=== PATIENT | female | born 1985 | race African-American/Black ===

== ENCOUNTER 2017-03-16 09:02 | Emergency (ER) | payer OTHER ==
[~2017-03-16] VITALS: Ht 170.2 cm; Wt 90.3 kg
[~2017-03-16 09:02] MED LIST: DEBROX15 M1 RIGHT EAR; TYLENOL650 MG/20. ORAL; ZOFRAN ODT4 MG ORAL
[2017-03-16 09:28] VITALS: BP 135/83
[2017-03-16] MEDS ORDERED: NKM (09:34)
[2017-03-16] MEDS ORDERED: Fluconazole 100mg tab ORAL ONE (10:00)
[2017-03-16] MEDS ORDERED: IBUPROFEN600 MG ORAL (10:10)
[2017-03-16 10:29] VITALS: BP 132/81
--- NOTE | 2017-03-16 11:02 | Diagnostic Imaging Report ---
Indication: PAIN Technique: 3 views right hand Comparison: none Findings: No acute fractures. No dislocations. There is minimal joint space narrowing of the second third and fourth proximal interphalangeal joints. Impression: No acute process Minimal degenerative changes
--- NOTE | 2017-03-19 20:01 | Emergency Room Report ---
History of Present Illness General Chief Complaint: Upper Extremity Injury Source: Patient Present Illness HPI Patient is a 32-year-old female who presented after a fall with a complaint of thumb pain. The patient reported having increased pain with movement. The fall occurred several days prior to arrival. This reported having sharp pain to her right thumb. She denied any distal numbness or tingling. Pain was located at the MCP joint. Pain did not improvement so patient presented for further evaluation. The patient additionally reports having some cottage cheese vaginal discharge. She states this has been present for several days. She denies being . She denies prior history of diabetes. 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 Allergies: Coded Allergies: No Known Allergies (Unverified , 12/08/14) Patient History Past Medical History: see triage record Last Menstrual Period: 02/25/17 Now: No Reviewed Nursing Documentation: PMH: Agreed, PSxH: Agreed Nursing Documentation-PMH Past Medical History: No Stated History Review of Systems All Other Systems: negative except mentioned in HPI Physical Exam Vital Signs Date Time Temp Pulse Resp B/P (MAP) Pulse Ox O2 Delivery O2 Flow Rate FiO2 03/16/17 09:28 98.4 81 19 135/83 98 Room Air General Appearance: well appearing, no apparent distress, alert, GCS 15 Head: normocephalic, atraumatic ENT: hearing grossly normal, normal voice Neck: full range of motion, supple Respiratory: no respiratory distress, speaking full sentences Cardiovascular #1: normal inspection, regular rate, rhythm, no edema Musculoskeletal: no calf tenderness, other - swelling and laxity to right thumb at MCP joint. Neurologic: normal gait Psychiatric: mood/affect normal Skin: no rash Medical Decision Making Diagnostic Impression: Primary Impression: Sprain of right thumb ER Course Patient presented for thumb pain after fall. Differential diagnoses included sprain, fracture, dislocation among others. X-ray imaging of the right hand 3 views interpreted by radiology showed no bony alignment without fracture. Patient given Diflucan for what appears to be a yeast infection. The patient is advised to follow up with primary care doctor in 1-2 days. Patient is advised to return if any worsening condition or if any changes in status that are concerning. Patient was placed in a thumb spica splint. She is advised that she may need further treatment. She is placed on light duty Labs Test 03/16/17 09:41 Urine HCG, Qualitative Negative Last Vital Signs Date Time Temp Pulse Resp B/P (MAP) Pulse Ox O2 Delivery O2 Flow Rate FiO2 03/16/17 10:29 98.4 74 19 132/81 98 Room Air Status: improved Disposition: HOME, SELF-CARE Condition: Stable Scripts Ibuprofen* (MOTRIN*) 600 Mg Tablet 600 MG ORAL Q8H Y for For Pain, #30 TAB 0 Refills Prov: Wilder Esposito 03/16/17 Referrals: [facility],REFERRING (PCP) Departure Forms: Return to Work Return to Work in (Days): 1 Other Restrictions: no use of right hand Patient Instructions: Thumb Sprain Wilder Esposito Mar 19, 2017 20:01
== END 2017-03-16 11:00 | disposition home or self-care (01) ==
LOC: EMR 10:58
DX: S63.601A Unspecified sprain of right thumb, initial encounter (principal); W19.XXXA Unspecified fall, initial encounter; Y93.9 Activity, unspecified; Y92.9 Unspecified place or not applicable; N89.8 Other specified noninflammatory disorders of vagina; E11.9 Type 2 diabetes mellitus without complications
CPT/HCPCS: 81025; 99283

== ENCOUNTER 2017-03-20 08:57 | Emergency (ER) | payer OTHER ==
[~2017-03-20] VITALS: Ht 170.2 cm; Wt 90.3 kg
[~2017-03-20 08:57] MED LIST changes: +IBUPROFEN600 MG ORAL; +NKM
[2017-03-20] MEDS ORDERED: Tetanus/Diptheria/Pertussis Vaccine 0.5ml Syr IM ONE (09:15)
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
[2017-03-20 10:18] VITALS: BP 126/77
[2017-03-20] MEDS ORDERED: AUGMENTIN 875-1 EAC1 ORAL (10:29)
[2017-03-20] MEDS ORDERED: FLUCONAZOLE100 MG ORAL (10:29)
[2017-03-20 10:34] VITALS: BP 126/77
== END 2017-03-20 10:35 | disposition home or self-care (01) ==
LOC: EMR 09:33
DX: S61.250A Open bite of right index finger without damage to nail, initial encounter (principal); Y04.1XXA Assault by human bite, initial encounter; Y93.F9 Activity, other caregiving; Y92.89 Other specified places as the place of occurrence of the external cause; Y99.0 Civilian activity done for income or pay; Z23 Encounter for immunization; J45.909 Unspecified asthma, uncomplicated; Z88.6 Allergy status to analgesic agent
CPT/HCPCS: 90471; 90715; 99283

== ENCOUNTER 2018-05-14 07:02 | Emergency (ER) | payer OTHER ==
[~2018-05-14] VITALS: Ht 170.2 cm; Wt 90.7 kg
[~2018-05-14 07:02] MED LIST changes: +AUGMENTIN 875-1 EAC1 ORAL; +FLUCONAZOLE100 MG ORAL
--- NOTE | 2018-05-14 07:41 | Emergency Room Report ---
History of Present Illness General Chief Complaint: Sore Throat Source: Patient Present Illness HPI Patient presents with sore throat and bilateral ear pain. It started yesterday. She's having difficulty swallowing. She's been able keep down liquids. She feels chills and also cold. She's had prior otitis media on R. No cough, chest pain, rashes, NVD, dysuria. She's not at this time. H/O asthma, not wheezing. No diabetes. 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 [employer] Last Menstrual Period: april Now: No Reviewed Nursing Documentation: PMH: Agreed; PSxH: Agreed Nursing Documentation-PMH Hx Asthma: Yes Review of Systems All Other Systems: negative except mentioned in HPI Physical Exam Vital Signs Date Time Temp Pulse Resp B/P (MAP) Pulse Ox O2 Delivery O2 Flow Rate FiO2 05/14/18 07:21 98.2 79 16 121/80 95 Room Air Sp02 EP Interpretation: reviewed, normal - slightly low as interpreted by me General Appearance: well appearing, no apparent distress Head: normocephalic, atraumatic Eyes: bilateral eye normal inspection, bilateral eye PERRL ENT: normal voice, moist mucus membranes, tonsillar swelling, pharyngeal erythema, other - TMs with erythema, more buldge R Neck: full range of motion, supple Respiratory: no respiratory distress, speaking full sentences Cardiovascular #1: regular rate, rhythm, no edema Cardiovascular #2: 2+ radial (L) Gastrointestinal: normal inspection, normal bowel sounds, non tender Genitourinary: no CVA tenderness Musculoskeletal: digits/nails normal, gait/station normal, normal range of motion Neurologic: alert, oriented x3, normal gait, grossly normal Psychiatric: mood/affect normal Skin: no rash Medical Decision Making Diagnostic Impression: Primary Impression: Pharyngitis Qualified Codes: J02.9 - Acute pharyngitis, unspecified Additional Impression: Otitis media Qualified Codes: H66.006 - Acute suppurative otitis media without spontaneous rupture of ear drum, recurrent, bilateral ER Course Patient presents with sore throat and ear pain. Exam is consistent with otitis media. Patient needs antibiotics, viscous lidocaine and Tylenol. The patient is not toxic and is not tachycardic. Patient is stable for outpatient observation and treatment. Last Vital Signs Date Time Temp Pulse Resp B/P (MAP) Pulse Ox O2 Delivery O2 Flow Rate FiO2 05/14/18 08:01 98.2 85 16 124/81 99 Room Air Status: improved Disposition: HOME, SELF-CARE Condition: Improved Scripts Ibuprofen* (MOTRIN*) 600 Mg Tablet 600 MG ORAL Q6H PRN for For Pain, #16 TAB Prov: Sanchez Rivas MD 05/14/18 Chlorpheniramine Maleate (CHLOR-TRIMETON) 4 Mg Tablet 4 MG PO Q6HR PRN for ear pain and congestion, #10 TAB Prov: Sanchez Rivas MD 05/14/18 Amoxicillin/Potassium Clav 500-125 Tablet* (AUGMENTIN 500-125 TABLET*) 1 Each Tablet 1 TAB ORAL THREE TIMES A DAY, #20 TAB Prov: Sanchez Rivas MD 05/14/18 Sanchez Rivas MD May 14, 2018 07:41
[2018-05-14] MEDS ORDERED: IBUPROFEN600 MG ORAL (07:43)
[2018-05-14] MEDS ORDERED: AUGMENTIN 500-1 EACH ORAL (07:43)
[2018-05-14] MEDS ORDERED: CHLOR-TRIMETON4 MG PO (07:43)
[2018-05-14] MEDS ORDERED: Acetaminophen 500mg (ES) tab ORAL ONE (07:45)
[2018-05-14] MEDS ORDERED: Lidocaine 2% Visc 15ml soln ORAL ONE (07:45)
[2018-05-14 07:55] VITALS: BP 124/81
[2018-05-14 08:01] VITALS: BP 124/81
== END 2018-05-14 09:17 | disposition home or self-care (01) ==
LOC: EMR 07:50
DX: J02.9 Acute pharyngitis, unspecified (principal); H66.93 Otitis media, unspecified, bilateral; J45.909 Unspecified asthma, uncomplicated; Z88.6 Allergy status to analgesic agent
CPT/HCPCS: 99283

== ENCOUNTER 2018-09-27 08:10 | Emergency (ER) | payer OTHER ==
[~2018-09-27] VITALS: Ht 170.2 cm; Wt 93.4 kg
[~2018-09-27 08:10] MED LIST changes: +AUGMENTIN 500-1 EACH ORAL; +CHLOR-TRIMETON4 MG PO
[2018-09-27] MEDS ORDERED: AMOXICILLIN500 MG ORAL (08:28)
[2018-09-27] MEDS ORDERED: IBUPROFEN600 MG ORAL (08:28)
[2018-09-27 08:32] VITALS: BP 136/83
[2018-09-27 08:40] VITALS: BP 136/83
--- NOTE | 2018-09-27 08:40 | NUR ---
ER DISCHARGE NOTE: Patient is cleared to be discharged per ERMD, pt is aox4, on room air, with stable vital signs. pt was given dc and prescription instructions, pt was able to verbalize understanding, pt is able to ambulate with steady gait. pt took all belongings.
--- NOTE | 2018-09-27 09:01 | Emergency Room Report ---
History of Present Illness General Chief Complaint: Flu Like Symptoms Source: Patient Present Illness HPI Patient presents emergency department today complaining of several days of cough congestion subjective fevers and chills and right ear ache. Patient denies any shortness of breath. Denies any leg pain leg swelling. Patient's daughter is also sick with similar symptoms. No other complaints are noted. Symptoms noted to be moderate. Patient states that she did not receive a flu shot this year. Patient is tolerating by mouth taking plenty of fluids. Denies any diarrhea.No other modifying factors. No other associated signs and symptoms. No other complaints were noted. Allergies: Coded Allergies: ASPIRIN (Verified Allergy, Severe, 09/27/18) seizures Uncoded Allergies: CITRUS (Allergy, Unknown, 05/14/18) Patient History Past Medical History: asthma Past Surgical History: none Pertinent Family History: none Social History: Denies: smoking, alcohol use, drug use Last Menstrual Period: aug 30 Now: No Reviewed Nursing Documentation: PMH: Agreed; PSxH: Agreed Nursing Documentation-PMH Past Medical History: No History, Except For Hx Asthma: Yes Review of Systems All Other Systems: negative except mentioned in HPI Physical Exam Vital Signs Date Time Temp Pulse Resp B/P (MAP) Pulse Ox O2 Delivery O2 Flow Rate FiO2 09/27/18 08:12 98.2 76 18 136/83 98 Room Air Sp02 EP Interpretation: reviewed, normal General Appearance: normal inspection, well appearing, no apparent distress, alert Head: atraumatic Eyes: bilateral eye normal inspection ENT: normal ENT inspection, hearing grossly normal, normal voice Neck: normal inspection, full range of motion, supple, no bony tend Respiratory: normal inspection, lungs clear, normal breath sounds, no respiratory distress, no retraction, no wheezing Cardiovascular #1: regular rate, rhythm, no edema Gastrointestinal: normal inspection, normal bowel sounds, non tender, soft, no guarding, no hernia Genitourinary: no CVA tenderness Musculoskeletal: normal inspection, back normal, normal range of motion Neurologic: normal inspection, alert, responsive, speech normal Psychiatric: normal inspection, judgement/insight normal, mood/affect normal Skin: normal inspection, normal color, no rash Medical Decision Making Diagnostic Impression: Primary Impression: Influenza-like symptoms Additional Impression: Earache on right ER Course Patient presents emergency department today with influenza-like symptoms. Difficult considerations include viral syndrome, otitis media, pneumonia just name a few. Patient's exam certainly benign I feel the patient symptoms are consistent with influenza. Given however patient has had symptoms for several days I do not feel that Tamiflu is indicated this time. In addition patient complains of right earache. Tympanic membrane appears to be clear although there could be a little fluid there. Given patient's presentation we'll provide prescription for amoxicillin. Recommend hold off on taking antibiotics until her symptoms becomes worse.Patient is advised to follow up with primary doctor in 2-3 days and return the emergency room for any worsening symptoms and as needed. Last Vital Signs Date Time Temp Pulse Resp B/P (MAP) Pulse Ox O2 Delivery O2 Flow Rate FiO2 09/27/18 08:40 98.2 78 18 136/83 98 Room Air Status: improved Disposition: HOME, SELF-CARE Condition: Stable Scripts Ibuprofen* (MOTRIN*) 600 Mg Tablet 600 MG ORAL Q8H PRN for For Pain, #20 TAB 0 Refills Prov: Aaron Nobles MD 09/27/18 Amoxicillin* (AMOXIL*) 500 Mg Capsule 500 MG ORAL THREE TIMES A DAY, #30 CAP Prov: Aaron Nobles MD 09/27/18 Departure Forms: Return to Work Return to Work Date: Oct 02, 2018 Patient Instructions: Influenza, Adult, [id number] Aaron Nobles MD Sep 27, 2018 09:01
== END 2018-09-27 08:40 | disposition home or self-care (01) ==
LOC: EMR 08:30
DX: J11.1 Influenza due to unidentified influenza virus with other respiratory manifestations (principal); H92.01 Otalgia, right ear; J45.909 Unspecified asthma, uncomplicated
CPT/HCPCS: 99282

== ENCOUNTER 2019-03-27 19:10 | Emergency (ER) | payer OTHER ==
[~2019-03-27] VITALS: Ht 167.6 cm; Wt 93.0 kg
[~2019-03-27 19:10] MED LIST changes: +AMOXICILLIN500 MG ORAL
[2019-03-27] MEDS ORDERED: Acetaminophen 500mg (ES) tab ORAL ONE (19:30)
--- NOTE | 2019-03-27 19:45 | Emergency Room Report ---
History of Present Illness General Chief Complaint: Complications Source: Patient Present Illness HPI 34-year-old female G4, , presents with abdominal cramps 3 days prior to arrival, with some bleeding, no obvious blood clots no darren blood per patient she states her last menstrual period was 7 weeks ago, she had a positive test she endorses some nausea vomiting, no aggravating relieving factors associated with cramps, no diarrhea, severity is mild, intermittent lasting minutes patient does not remember her blood type patient presents for evaluation Allergies: Coded Allergies: ASPIRIN (Verified Allergy, Severe, 03/27/19) seizures Uncoded Allergies: CITRUS (Allergy, Unknown, 05/14/18) Patient History Past Medical History: see triage record Last Menstrual Period: 02-10-19 Now: Yes - 2 : 4 Para: 1 Reviewed Nursing Documentation: PMH: Agreed; PSxH: Agreed Nursing Documentation-PMH Hx Asthma: Yes Review of Systems All Other Systems: negative except mentioned in HPI Physical Exam Vital Signs Date Time Temp Pulse Resp B/P (MAP) Pulse Ox O2 Delivery O2 Flow Rate FiO2 03/27/19 19:12 98.2 85 18 149/70 (96) 97 Room Air Sp02 EP Interpretation: reviewed, normal General Appearance: well appearing, no apparent distress, alert Head: normocephalic, atraumatic Eyes: bilateral eye PERRL, bilateral eye EOMI ENT: uvula midline, moist mucus membranes Neck: supple, thyroid normal, supple/symm/no masses Respiratory: lungs clear, no respiratory distress, no retraction, no accessory muscle use Cardiovascular #1: normal peripheral pulses, regular rate, rhythm, no edema, no gallop, no murmur Gastrointestinal: non tender, soft, no guarding, no rebound Musculoskeletal: normal inspection Neurologic: alert, oriented x3 Psychiatric: mood/affect normal Skin: no rash, warm/dry Medical Decision Making Diagnostic Impression: Primary Impression: Complication of Qualified Codes: O26.91 - related conditions, unspecified, first trimester Additional Impressions: Threatened UTI (urinary tract infection) Qualified Codes: N30.00 - Acute cystitis without hematuria ER Course Patient with abdominal cramping patient is currently differential diagnosis is threatened , , diverticulitis, appendicitis, abdomen soft nontender, ultrasound shows yolk sac, 5 weeks 2 days , no heartbeat, ovaries within normal limits, Patient is O+, H&H is stable, patient does have a UTI will provide patient with prescriptions disposition home with return precautions counseled patient to follow-up with OB Laboratory Tests Test 03/27/19 19:12 03/27/19 19:30 White Blood Count 10.5 K/UL (4.8-10.8) Red Blood Count 4.36 M/UL (4.20-5.40) Hemoglobin 13.4 G/DL (12.0-16.0) Hematocrit 39.8 % (37.0-47.0) Mean Corpuscular Volume 91 FL (80-99) Mean Corpuscular Hemoglobin 30.7 PG (27.0-31.0) Mean Corpuscular Hemoglobin Concent 33.7 G/DL (32.0-36.0) Red Cell Distribution Width 10.9 % (11.6-14.8) L Platelet Count 233 K/UL (150-450) Mean Platelet Volume 6.0 FL (6.5-10.1) L Neutrophils (%) (Auto) 48.8 % (45.0-75.0) Lymphocytes (%) (Auto) 42.1 % (20.0-45.0) Monocytes (%) (Auto) 6.2 % (1.0-10.0) Eosinophils (%) (Auto) 1.6 % (0.0-3.0) Basophils (%) (Auto) 1.3 % (0.0-2.0) Sodium Level 137 MMOL/L (136-145) Potassium Level 3.5 MMOL/L (3.5-5.1) Chloride Level 103 MMOL/L (98-107) Carbon Dioxide Level 24 MMOL/L (21-32) Anion Gap 10 mmol/L (5-15) Blood Urea Nitrogen 12 mg/dL (7-18) Creatinine 0.9 MG/DL (0.55-1.30) Estimate Glomerular Filtration Rate > 60 mL/min (>60) Glucose Level 93 MG/DL (74-106) Calcium Level 8.6 MG/DL (8.5-10.1) Total Bilirubin Pending Aspartate Amino Transferase (AST) 15 U/L (15-37) Alanine Aminotransferase (ALT) 20 U/L (12-78) Alkaline Phosphatase 84 U/L (46-116) Total Protein 7.7 G/DL (6.4-8.2) Albumin 4.0 G/DL (3.4-5.0) Globulin 3.7 g/dL Albumin/Globulin Ratio 1.1 (1.0-2.7) Lipase 209 U/L (73-393) Human Chorionic Gonadotropin, Quant 15127 mIU/mL (1-6) H Urine Color Pale yellow Urine Appearance Cloudy Urine pH 6 (4.5-8.0) Urine Specific Bloomer 1.020 (1.005-1.035) Urine Protein 1+ (NEGATIVE) H Urine Glucose (UA) Negative (NEGATIVE) Urine Ketones Negative (NEGATIVE) Urine Blood 5+ (NEGATIVE) H Urine Nitrite Negative (NEGATIVE) Urine Bilirubin Negative (NEGATIVE) Urine Urobilinogen Normal MG/DL (0.0-1.0) Urine Leukocyte Esterase 1+ (NEGATIVE) H Urine RBC 5-10 /HPF (0 - 2) H Urine WBC 0-2 /HPF (0 - 2) Urine Squamous Epithelial Cells Many /LPF (NONE/OCC) H Urine Bacteria Moderate /HPF (NONE) H CT/MRI/US Diagnostic Results CT/MRI/US Diagnostic Results : Impression ultrasound shows yolk sac, 5 weeks 2 days, no heartbeat, ovaries within normal limits, Last Vital Signs Date Time Temp Pulse Resp B/P (MAP) Pulse Ox O2 Delivery O2 Flow Rate FiO2 03/27/19 19:12 98.2 85 18 149/70 (96) 97 Room Air Disposition: HOME, SELF-CARE Condition: Stable Scripts Cephalexin* (CEPHALEXIN*) 500 Mg Tablet 500 MG ORAL EVERY 6 HOURS, #20 CAP Prov: Donald Yi MD 03/27/19 Referrals: [facility],REFERRING (PCP) [facility] Belinda Ortiz. [facility] Patient Instructions: Pelvic Rest, Threatened Miscarriage, [id number], Urinary Tract Infection Additional Instructions: The patient was provided with discharge instructions, notified to follow-up with a primary care doctor and or specialist in the next 24-48 hours, and to return to the ED if they have worsening of their symptoms. Please note that this report is being documented using [employer] technology. This can lead to erroneous entry secondary to incorrect interpretation by the dictating instrument. Donald Yi MD Mar 27, 2019 19:45
[2019-03-27 19:48] LABS: BASOPHILS % (AUTO) 1.3 % (0.0-2.0); EOSINOPHILS % (AUTO) 1.6 % (0.0-3.0); HEMATOCRIT 39.8 % (37.0-47.0); HEMOGLOBIN 13.4 G/DL (12.0-16.0); LYMPHOCYTES % (AUTO) 42.1 % (20.0-45.0); MEAN CORPUSCULAR VOLUME 91 FL (80-99); MONOCYTES % (AUTO) 6.2 % (1.0-10.0); NEUTROPHILS % (AUTO) 48.8 % (45.0-75.0); PLATELET COUNT 233 K/UL (150-450); RED BLOOD COUNT 4.36 M/UL (4.20-5.40); RED CELL DISTRIBUTION WIDTH 10.9 % (11.6-14.8); WHITE BLOOD COUNT 10.5 K/UL (4.8-10.8)
[2019-03-27 19:52] LABS: APPEARANCE,URINE CLOUDY; BILIRUBIN, URINE NEGATIVE (NEGATIVE); COLOR,URINE PALE YELLOW; GLUCOSE, URINE (UA) NEGATIVE (NEGATIVE); KETONES,URINE NEGATIVE (NEGATIVE); LEUKOCYTE ESTERASE ,URINE 1+ (NEGATIVE); NITRITE,URINE NEGATIVE (NEGATIVE); PH,URINE 6 (4.5-8.0); PROTEIN,URINE 1+ (NEGATIVE); UROBILINOGEN,URINE NORMAL MG/DL (0.0-1.0)
[2019-03-27 20:15] LABS: ANION GAP 10 mmol/L (5-15); BLOOD UREA NITROGEN 12 mg/dL (7-18); CALCIUM 8.6 MG/DL (8.5-10.1); CARBON DIOXIDE 24 MMOL/L (21-32); CHLORIDE 103 MMOL/L (98-107); CREATININE 0.9 MG/DL (0.55-1.30); POTASSIUM 3.5 MMOL/L (3.5-5.1); SODIUM 137 MMOL/L (136-145)
[2019-03-27 20:19] LABS: ALANINE AMINOTRANSFERASE 20 U/L (12-78); ALBUMIN/GLOBULIN RATIO 1.1 (1.0-2.7); ALKALINE PHOSPHATASE 84 U/L (46-116); ASPARTATE AMINO TRANSFERASE 15 U/L (15-37)
[2019-03-27] MEDS ORDERED: CEPHALEXIN500 M1 ORAL (20:53)
[2019-03-27 21:00] VITALS: BP 130/79
[2019-03-27 21:41] LABS: BILIRUBIN,TOTAL 0.2 MG/DL (0.2-1.0)
--- NOTE | 2019-03-28 09:44 | Diagnostic Imaging Report ---
Indication: Pain and spotting during Technique: Transabdominal and endovaginal pelvic ultrasound was performed. Findings: An intrauterine gestational sac is identified. A small yolk sac is identified. No pole is identified. 2 subcentimeter hypoechoic lesions noted within the anterior myometrium which may represent small fibroids. Some nabothian cysts are noted within the cervix. Right ovary is normal in appearance. No adnexal mass noted on the right. Color and Doppler flow is noted on the right. There is a simple appearing cyst the left ovary which measures approximately 2.5 cm. Color and Doppler flow is also visualized in the left ovary. No free pelvic fluid is demonstrated. IMPRESSION: * Intrauterine gestational sac with approximate age by ultrasound of 5 weeks 2 days. Yolk sac is identified however pole is not seen at this time. Viability is indeterminate. Differential considerations include early versus failed early . Number and correlation with trended beta-HCG and short-term interval follow-up ultrasound. Obstetric follow-up recommended. * 2.5 cm simple appearing cyst in the left ovary. Attention on follow-up recommended. Color and Doppler flow visualized in the bilateral ovaries. * Small subcentimeter masses in the anterior myometrium which may represent small fibroids. * Cervical nabothian cysts. * No free pelvic fluid. Salient findings correspond with the preliminary reports
== END 2019-03-27 21:00 | disposition home or self-care (01) ==
LOC: EMR 19:32
DX: O20.0 Threatened abortion (principal); O23.41 Unspecified infection of urinary tract in pregnancy, first trimester; O99.511 Diseases of the respiratory system complicating pregnancy, first trimester; J45.909 Unspecified asthma, uncomplicated; Z3A.01 Less than 8 weeks gestation of pregnancy; Z88.6 Allergy status to analgesic agent; Z91.018 Allergy to other foods
CPT/HCPCS: 36415; 76801; 76830; 80053; 81003; 83690; 84702; 85025; 86850; 86900; 86901; 87086; 96374; J2405; Z7502; 99284